=== PATIENT | male | born 2000 | race Caucasian/White ===

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

== ENCOUNTER 2022-05-13 20:26 | Emergency (ER) | payer BC ==
[~2022-05-13] VITALS: Ht 175.3 cm; Wt 81.6 kg
[~2022-05-13 20:26] MED LIST changes: +CLOT15CR27 TP
[2022-05-13 22:36] VITALS: BP 128/77
--- NOTE | 2022-05-13 22:36 | NUR ---
Patient discharged to home in stable condition. Written and verbal after care instructions given. Patient verbalizes understanding of instruction.
[2022-05-13] MEDS ORDERED: IBUPROFEN 600 MG TABLET ONE (22:37)
[2022-05-13] MEDS ORDERED: IBUP-1955 PO (22:37)
[2022-05-13] MEDS ORDERED: IBUPROFEN 600 MG TABLET PO ONE (23:00)
== END 2022-05-13 22:39 | disposition home or self-care (01) ==
LOC: ER 20:37
DX: R51.9 Headache, unspecified (principal); Z79.899 Other long term (current) drug therapy

== ENCOUNTER 2023-12-02 03:59 | Emergency (ER) | payer BC, OTHER ==
[~2023-12-02] VITALS: Ht 182.9 cm; Wt 83.9 kg
[~2023-12-02 03:59] MED LIST changes: +IBUP-1955 PO
[2023-12-02] MEDS: IV NS 0.9% 1,000 ML BAG IV ONE (04:32)
[2023-12-02 04:40] LABS: BASOPHILS % (AUTO) 0.2 % (0.0-2.0); EOSINOPHILS % (AUTO) 0.2 % (0.0-6.0); HEMATOCRIT 41 % (39-51); HEMOGLOBIN 14.4 g/dL (13.5-17.5); LYMPHOCYTES # (AUTO) 1.7 K/uL (0.8-4.8); LYMPHOCYTES % (AUTO) 15.8 % (20.0-44.0); MEAN CORPUSCULAR HEMOGLOBIN 30 PG (26.0-33.0); MEAN CORPUSCULAR HGB CONC 36 g/dl (31.0-36.0); MEAN CORPUSCULAR VOLUME 85 fL (80-96); MONOCYTES # (AUTO) 0.5 K/uL (0.1-1.30); MONOCYTES % (AUTO) 5.2 % (2.0-12.0); NEUTROPHILS # (AUTO) 8.2 K/uL (1.8-8.9); NEUTROPHILS % (AUTO) 78.6 % (43.0-81.0); PLATELET COUNT (AUTO) 224 K/uL (150-450); RED BLOOD CELL COUNT(AUTO) 4.76 MIL/uL (4.5-6.0); RED CELL DISTRIBUTION WIDTH 12.6 % (11.5-15.0); WHITE BLOOD COUNT (AUTO) 10.4 K/uL (4.3-11.0)
[2023-12-02] MEDS ORDERED: LORAZEPAM 1 MG TABLET ONE ×2 (04:53→05:57)
[2023-12-02 04:55] LABS: CALCIUM, SERUM 9.4 mg/dL (8.5-10.1); CARBON DIOXIDE 24 mmol/L (21-32); CHLORIDE 102 mmol/L (98-107); GLUCOSE 102 mg/dL (74-106); POTASSIUM 3.2 mmol/L (3.5-5.1); SODIUM SERUM 139 mmol/L (136-145); UREA NITROGEN, BLOOD 12 mg/dL (7-18)
[2023-12-02] MEDS: LORAZEPAM 1 MG TABLET PO ONE ×2 (04:57→06:00)
[2023-12-02 04:58] LABS: ALCOHOL, BLOOD < 3 mg/dL (0-10)
[2023-12-02 05:00] LABS: AMPHETAMINE, URINE NEGATIVE (NEGATIVE); BARBITURATE, URINE NEGATIVE (NEGATIVE); BENZODIAZEPINE, URINE NEGATIVE (NEGATIVE); COCCAINE, URINE NEGATIVE (NEGATIVE); OPIATE, URINE NEGATIVE (NEGATIVE); PHENCYCLIDINE SCREEN,URINE NEGATIVE (NEGATIVE)
[2023-12-02 05:02] LABS: CANNABINOID, URINE POSITIVE (NEGATIVE)
[2023-12-02 05:57] LABS: THYROID STIMULATING HORMONE 1.357 uIU/mL (0.358-3.74)
[2023-12-02 06:19] VITALS: TEMP 98
[2023-12-02] MEDS: POTASSIUM CHLORIDE 20 MEQ TAB.PRT.SR PO ONE (06:36)
[2023-12-02] MEDS ORDERED: POTASSIUM CHLORIDE 20 MEQ TAB.PRT.SR PO ONE (06:37)
[2023-12-02 06:38] VITALS: BP 134/82; O2SAT 100
== END 2023-12-02 06:38 | disposition home or self-care (01) ==
LOC: ER 03:59
DX: R00.2 Palpitations (principal); Z79.899 Other long term (current) drug therapy
CPT/HCPCS: 99285; 96360; 93005; 71045; 85025; 80048; 36415; 84443; 84484; 80320; 80307; J7030; G0480

== ENCOUNTER 2023-12-03 23:53 | Emergency (ER) | payer OTHER ==
[~2023-12-03] VITALS: Ht 167.6 cm; Wt 59.0 kg
[2023-12-04 00:57] VITALS: BP 122/74; TEMP 98.1; O2SAT 99
== END 2023-12-04 01:10 | disposition home or self-care (01) ==
LOC: ER 23:54
DX: Z71.1 Person with feared health complaint in whom no diagnosis is made (principal)

== ENCOUNTER 2023-12-22 00:45 | Emergency (ER) | payer SELFPAY ==
[~2023-12-22] VITALS: Ht 167.6 cm; Wt 60.3 kg
[2023-12-22 01:00] VITALS: BP 133/88; TEMP 97.9; O2SAT 98
== END 2023-12-22 02:09 | disposition left against medical advice (07) ==
LOC: ER 00:46
DX: R44.0 Auditory hallucinations (principal); Z53.21 Procedure and treatment not carried out due to patient leaving prior to being seen by health care provider